=== PATIENT | female | born 1985 | race Caucasian/White ===

== ENCOUNTER 2017-11-11 08:48 | Inpatient (IN) | payer MEDICAID ==
--- NOTE | 2017-11-11 04:39 | PCM.LDHP ---
L&D History of Present Illness - General Date of Service: 11/11/17 Admit Problem/Dx: Patient Status Order with Admit Dx/Problem 11/11/17 09:00 Patient Status [ADT] Routine Admission Diagnosis/Problem Admission Diagnosis/Problem section Source of Information: Patient History Limitations: Reports: No Limitations - History of Present Illness Introduction:: 32 yo female here for an elective repeat C section.She is 39 w1d. Has a h/ o 2 previous scars. has been unremarkable,except asthma exacerbations.She has obesity,stable,and Migraine headaches ,stable. - Related Data Allergies/Adverse Reactions: Allergies Allergy/AdvReac Type Severity Reaction Status Date / Time Penicillins Allergy Cannot Verified 11/10/17 14:53 Remember Past Medical History Respiratory History: Reports: Asthma Neurological History: Reports: Headaches, Chronic - Past Surgical History Other Surgical History Comment: 2 C sections H&P Review of Systems - Review of Systems: Review Of Systems: ROS reveals no pertinent complaints other than HPI. L&D Exam - Exam Exam: See Below - Exam General: Alert, Oriented HEENT: PERRLA, Conjunctiva Clear, EACs Clear, EOMI, Hearing Intact, Mucosa Moist & [place], Nares Patent, Normal Nasal Septum, Posterior Pharynx Clear, TMs Clear Neck: Supple, Trachea Midline Lungs: Clear to Auscultation, Normal Respiratory Effort Cardiovascular: Regular Rate, Regular Rhythm GI/Abdominal Exam: Normal Bowel Sounds, Soft, Non-Tender, No Organomegaly, No Distention, No Abnormal Bruit, No Mass, Pelvis Stable Rectal Exam: Normal Exam, Normal Rectal Tone Genitourinary: Normal external exam, Normal bimanual exam, Normal speculum exam Back Exam: Normal Inspection, Full Range of Motion Extremities: Normal Inspection, Normal Range of Motion, Non-Tender, No Pedal Edema, Normal Capillary Refill Skin: Warm, Dry, Intact Neurological: Cranial Nerves Intact, Reflexes Equal Bilateral Psychiatric: Alert, Normal Affect, Normal Mood - Problem List (1) H/O: SNOMED Code(s): 360947705 ICD Code: Z98.891 - HISTORY OF UTERINE SCAR FROM PREVIOUS SURGERY Status: Acute (2) Term SNOMED Code(s): 28889677 ICD Code: Z34.80 - ENCOUNTER FOR SUPRVSN OF NORMAL , UNSP TRIMESTER Status: Acute (3) Asthma SNOMED Code(s): 159165839 ICD Code: J45.909 - UNSPECIFIED ASTHMA, UNCOMPLICATED Status: Chronic Current Visit: Yes Qualifiers: Asthma severity: moderate Asthma persistence: persistent Asthma complication type: uncomplicated Qualified Code(s): J45.40 - Moderate persistent asthma, uncomplicated (4) Obesity affecting SNOMED Code(s): 622707471437 ICD Code: O99.210 - OBESITY COMPLICATING , UNSPECIFIED TRIMESTER Status: Chronic Current Visit: Yes Qualifiers: Trimester: third trimester Qualified Code(s): O99.213 - Obesity complicating , third trimester (5) H/O migraine during SNOMED Code(s): 257222647 ICD Code: Z86.69 - PERSONAL HISTORY OF DIS OF THE NERVOUS SYS AND SENSE ORGANS; Z87.59 - PERSONAL HISTORY OF COMP OF PREG, CHLDBRTH AND THE PUERP Status: Acute Current Visit: Yes Problem List Initiated/Reviewed/Updated: Yes Orders Last 24hrs: Active Orders 24 hr Category Date Time Status Patient Status [ADT] Routine ADT 11/11/17 09:00 Active Insert Dalal Catheter [Insert Urinary Catheter] [OM.PC] Care 11/11/17 11:30 Ordered Q24H RT Incentive Spirometry [RC] ASDIRECTED Care 11/11/17 09:00 Active Urinary Catheter Assessment [RC] QSHIFT Care 11/10/17 14:42 Active Verify Patient Consent Obtain [RC] ASDIRECTED Care 11/11/17 09:00 Active Nothing Per Oral Diet [DIET] Diet 11/10/17 Dinner Ordered CBC WITH AUTO DIFF [HEME] Routine Lab 11/11/17 09:00 Ordered TYPE AND SCREEN [BBK] Routine Lab 11/11/17 09:00 Ordered Lactated Ringers [Ringers, Lactated] 1,000 ml Med 11/11/17 09:00 Active IV ASDIRECTED Sodium Chloride 0.9% [Saline Flush] Med 11/11/17 09:00 Active 10 ml FLUSH ASDIRECTED PRN ceFAZolin [Ancef] 3 gm Med 11/11/17 09:00 Active Sodium Chloride 0.9% [Normal Saline] 100 ml IV ONETIME Peripheral IV Insertion Adult [OM.PC] Routine Oth 11/11/17 09:00 Ordered Sequential Compression Device [OM.PC] Routine Oth 11/11/17 09:00 Ordered Resuscitation Status Routine Resus Stat 11/10/17 14:37 Ordered Medication Orders Cefazolin Sodium 3 gm/ Sodium (Chloride) 100 mls @ 200 mls/hr IV ONETIME ONE Stop: 11/11/17 09:29 Lactated Ringer's (Ringers, Lactated) 1,000 mls @ 125 mls/hr IV ASDIRECTED KALYN Sodium Chloride (Saline Flush) 10 ml FLUSH ASDIRECTED PRN PRN Reason: Keep Vein Open Assessment/Plan Comment:: Discussed risks and benefits with the patient,including,but not limited to bleeding,infection,anesthetic risk. Wishes to proceed. Plan to have Albuterol available.
[2017-11-11] MEDS ORDERED: Sodium Chloride 0.9% 10 ML Syringe FLUSH PRN (09:00)
[2017-11-11] MEDS: Lactated Ringers 1,000 ML IV SCH ×4 (09:30→21:05)
[2017-11-11] MEDS ORDERED: Citric Acid/Sodium Citrate Solution 30 ML Cup PO ONE (10:16)
[2017-11-11] MEDS ORDERED: Scopolamine 1.5 MG Transdermal Patch TOP ONE (10:16)
[2017-11-11] MEDS ORDERED: HYDROmorphone 2 MG/ML SDV IV ONE (11:30)
[2017-11-11] MEDS ORDERED: Bupivacaine 0.25% 30 ML SDV INJECT ONE (11:30)
[2017-11-11] MEDS ORDERED: Ketorolac 30 MG/ML SDV IVPUSH ONE (11:30)
[2017-11-11] MEDS ORDERED: Ondansetron 4 MG/2 ML SDV IVPUSH ONE (11:30)
[2017-11-11] MEDS ORDERED: Phenylephrine 1% 10 MG/ML SDV IV ONE (11:30)
[2017-11-11] MEDS ORDERED: hydrOXYzine HCl 50 MG/ML SDV IM ONE (11:30)
[2017-11-11] MEDS ORDERED: Lactated Ringers 1,000 ML IV ONE (11:30)
[2017-11-11] MEDS ORDERED: Dexamethasone 4 MG/ML 5 ML MDV ONE (11:30)
[2017-11-11] MEDS ORDERED: fentaNYL 100 MCG/2 ML SDV ITHECAL ONE (11:30)
[2017-11-11] MEDS ORDERED: ePHEDrine 50 MG/ML SDV IV ONE (11:30)
[2017-11-11] MEDS ORDERED: Oxytocin 10 Units/1 ML SDV IV ONE ×2 (11:30)
[2017-11-11] MEDS ORDERED: diphenhydrAMINE 50 MG/ML SDV IVPUSH PRN (12:32)
[2017-11-11] MEDS ORDERED: ePHEDrine 50 MG/ML SDV IVPUSH PRN (12:32)
[2017-11-11] MEDS ORDERED: Naloxone 0.4 MG/ML SDV IVPUSH PRN (12:32)
--- NOTE | 2017-11-11 14:46 | PCM.PRNOTE ---
- Free Text/Narrative Note: Anesthesia Note: Consult for post op pain management: Bilateral Transversus Abdominus Plane Block The patient was under spinal anesthesia at the time of the block. Standard anesthesia monitoring was in place during the block. The patient was prepped and draped in the usual fashion once surgery was complete. A time out for procedure was called. A 20 gauge 4 inch AppPowerGroupuplex ultra echogenic needle was used. Via ultrasound guidance with an inline approach, the external oblique, internal oblique and transversus abdominus plane was visualized. Aspiration was negative, and upon injection of local anesthesia, the faschial sheath was observed spreading apart with deposit of local anesthesia. A total of 30 ml of 0.25% bupivicaine with 5 mg decadron was injected, with noted elipse filling of faschial plane. The same procedure was repeated on the opposite side; and another 30 ml of 0.25 % bupivicaine with 5 mg decadron was injected. The patient tolerated the procedure well. Procedure start time: 1239 Procedure stop time: 1249 The patient was then transferred to post operative care unit: IP room 143. All ultrasound images were saved in PACS system.
--- NOTE | 2017-11-11 18:23 | OR ---
DATE OF OPERATION: 11/11/2017 SURGEON: Johnathan Murillo MD PREOPERATIVE DIAGNOSES: 1. Intrauterine at 39 weeks. 2. History of previous C-sections x2 and the patient desires a repeat C- section. 3. Asthma. 4. Obesity in . POSTOPERATIVE DIAGNOSES: 1. Intrauterine at 39 weeks. 2. History of previous C-sections x2 and the patient desires a repeat C- section. 3. Asthma. 4. Obesity in . PROCEDURE PERFORMED: Repeat section, lower uterine segment. ANESTHESIA: Spinal. ESTIMATED BLOOD LOSS: 600 mL. COMPLICATIONS: None. RIVET CATCHER: Dr. Wilks. FINDINGS: Male in OP position, score of 8 and 9 at 5 and 10 minutes and weight 10 pounds. PROCEDURE IN DETAIL: The patient was taken to the operating room where the spinal anesthesia was administered without difficulty. She was prepped and draped in the usual sterile fashion in the dorsal supine position with a leftward tilt. A Pfannenstiel incision was made with the scalpel along the previous scar and carried through to the underlying layer of fascia using the Bovie. The fascia was incised in the midline and extended laterally with the Anguiano scissors. Paul clamps were used to elevate the superior aspect of the fascial incision and the underlying rectus muscles were dissected bluntly and using Anguiano scissors. The same was repeated in the inferior portion. The rectus muscles were dissected in the midline. The peritoneum was identified and entered using [place]. The incision was extended superiorly and inferiorly with good visualization of the bladder. The bladder blade was inserted. Vesicouterine peritoneum was identified and entered sharply. A bladder flap was created digitally. The bladder blade was reinserted. The lower uterine segment was incised in a transverse fashion using the scalpel and extended by traction in the cephalad caudal fashion manually. Clear fluid was noted. The was subsequently delivered. The mouth was wiped gently and the nose. Cord was cut and clamped. The infant was handed to the awaiting nursery nurse. The placenta was delivered spontaneously, intact with a three-vessel cord. The uterus was exteriorized and cleared of all clots and debris. The incision of the uterus was repaired in 2 layers using 0 chromic sutures. Hemostasis was visualized. Two [id number] stitches were needed to achieve adequate hemostasis. The uterus was returned to the abdomen. The gutters were irrigated and thereafter the rectus sheath was closed in one layer of 1-0 Vicryl. The subcutaneous tissue was closed with a 3-0 running stitch which was returned to close the skin. Sponge, lap, and instrument counts were correct x3. The patient received 3 g of Ancef within 60 minutes of the procedure and was stable at the completion of the procedure and subsequently transferred to the recovery room in stable condition. /[id number] LYDIA/SARAH HEARN
[2017-11-11] MEDS ORDERED: Ibuprofen 600 MG Tab PO PRN (21:15)
[2017-11-11] MEDS: Ibuprofen 600 MG Tab PO SCH (21:45)
[2017-11-12] MEDS: Lactated Ringers 1,000 ML IV SCH ×2 (01:07→05:07)
[2017-11-12] MEDS: Ibuprofen 600 MG Tab PO SCH ×4 (02:55→21:35)
[2017-11-12] MEDS ORDERED: Acetaminophen/HYDROcodone 325-5 MG Tab PO PRN (08:49)
[2017-11-12] MEDS ORDERED: Docusate Sodium 100 MG Cap PO PRN (08:50)
[2017-11-12] MEDS: Enoxaparin 40 MG/0.4 ML Syringe SUBCUT SCH (14:54)
--- NOTE | 2017-11-12 19:16 | PCM.PNPP ---
- General Info Date of Service: 11/12/17 Functional Status: Reports: Pain Controlled, Tolerating Diet - Review of Systems General: Reports: No Symptoms HEENT: Reports: No Symptoms Pulmonary: Reports: No Symptoms Cardiovascular: Reports: No Symptoms Gastrointestinal: Reports: No Symptoms Genitourinary: Reports: No Symptoms Musculoskeletal: Reports: No Symptoms Skin: Reports: No Symptoms Neurological: Reports: No Symptoms Psychiatric: Reports: No Symptoms - General Info Date of Service: 11/12/17 - Patient Data Vital Signs - Most Recent: Last Vital Signs Temp 98.3 F 11/11/17 19:30 Pulse 80 11/11/17 19:30 Resp 18 11/11/17 19:30 BP 117/71 11/11/17 19:30 Pulse Ox 97 11/11/17 19:30 Weight - Most Recent: 122.924 kg I&O - Last 24 Hours: Intake & Output 11/12/17 11/12/17 11/12/17 06:59 14:59 22:59 Intake Total 2333 Output Total 875 Balance 1458 Lab Results - Last 24 Hours: Laboratory Results - last 24 hr 11/12/17 Range/Units 06:35 WBC 13.8 H (4.5-12.0) X10-3/uL RBC 3.75 (3.23-5.20) x10(6)uL Hgb 9.7 L (11.5-15.5) g/dL Hct 29.0 L (30.0-51.3) % MCV 77.4 L (80-96) fL MCH 25.8 L (27.7-33.6) pg MCHC 33.4 (32.2-35.4) g/dL RDW 13.7 (11.5-15.5) % Plt Count 286 (125-369) X10(3)uL Med Orders - Current: Current Medications Hydrocodone Bitart/Acetaminophen ([place] 325-5 Mg) 1 tab PO Q4H PRN PRN Reason: Pain Diphenhydramine HCl (Benadryl) 25 mg IVPUSH Q6H PRN PRN Reason: Itching or Nausea Docusate Sodium (Colace) 100 mg PO BID PRN PRN Reason: Constipation Last Admin: 11/12/17 15:37 Dose: 100 mg Enoxaparin Sodium (Lovenox) 40 mg SUBCUT Q24H COUNTS INCLUDE 234 BEDS AT THE [facility] Last Admin: 11/12/17 14:54 Dose: 40 mg Ephedrine Sulfate (Ephedrine Sulfate) 5 mg IVPUSH ASDIRECTED PRN PRN Reason: Other Ibuprofen (Motrin) 600 mg PO Q6H COUNTS INCLUDE 234 BEDS AT THE [facility] Last Admin: 11/12/17 15:36 Dose: 600 mg Naloxone HCl (Narcan) 0.1 mg IVPUSH ONETIME PRN PRN Reason: Respiratory Depression Discontinued Medications Citric Acid/Sodium Citrate (Bicitra Solution) 30 ml PO ONETIME ONE Stop: 11/11/17 10:17 Last Admin: 11/11/17 10:47 Dose: 30 ml Cefazolin Sodium 3 gm/ Sodium (Chloride) 100 mls @ 200 mls/hr IV ONETIME ONE Stop: 11/11/17 09:29 Lactated Ringer's (Ringers, Lactated) 1,000 mls @ 125 mls/hr IV ASDIRECTED COUNTS INCLUDE 234 BEDS AT THE [facility] Last Admin: 11/11/17 11:20 Dose: 125 mls/hr Lactated Ringer's (Ringers, Lactated) 1,000 mls @ 250 mls/hr IV ASDIRECTED COUNTS INCLUDE 234 BEDS AT THE [facility] Last Admin: 11/12/17 05:07 Dose: 250 mls/hr Scopolamine (Transderm-Scop) 1.5 mg TOP ONETIME ONE Stop: 11/11/17 10:17 Last Admin: 11/11/17 10:47 Dose: 1.5 mg Sodium Chloride (Saline Flush) 10 ml FLUSH ASDIRECTED PRN PRN Reason: Keep Vein Open - Interaction Disposition, : in Room with Family Support Person: Other (see below) - Recovery Exam Fundal Tone: Firm Fundal Level: At Umbilicus Fundal Placement: Midline Lochia Amount: Small Lochia Color: Rubra/Red Perineum Description: Intact, Minimal Bruising/Swelling Episiotomy/Laceration: None Bladder Status: Voiding Urinary Elimination: Indwelling Catheter - Exam General: Alert, Oriented HEENT: Pupils Equal Neck: Supple Lungs: Clear to Auscultation, Normal Respiratory Effort Cardiovascular: Regular Rate, Regular Rhythm GI/Abdominal Exam: Normal Bowel Sounds, Soft, Non-Tender, No Organomegaly, No Distention, No Abnormal Bruit, No Mass, Pelvis Stable Extremities: Normal Inspection, Normal Range of Motion, Non-Tender, No Pedal Edema, Normal Capillary Refill Skin: Warm, Dry, Intact Wound/Incisions: Healing Well Neurological: No New Focal Deficit Psy/Mental Status: Alert, Normal Affect, Normal Mood - Problem List & Annotations (1) H/O: SNOMED Code(s): 941379728 Code(s): Z98.891 - HISTORY OF UTERINE SCAR FROM PREVIOUS SURGERY Status: Acute Current Visit: No (2) Term SNOMED Code(s): 62406925 Code(s): Z34.80 - ENCOUNTER FOR SUPRN OF NORMAL , UNSP TRIMESTER Status: Acute Current Visit: No (3) Asthma SNOMED Code(s): 528877644 Code(s): J45.909 - UNSPECIFIED ASTHMA, UNCOMPLICATED Status: Chronic Current Visit: Yes Qualifiers: Asthma severity: moderate Asthma persistence: persistent Asthma complication type: uncomplicated Qualified Code(s): J45.40 - Moderate persistent asthma, uncomplicated (4) Obesity affecting SNOMED Code(s): 166152874988 Code(s): O99.210 - OBESITY COMPLICATING , UNSPECIFIED TRIMESTER Status: Chronic Current Visit: Yes Qualifiers: Trimester: third trimester Qualified Code(s): O99.213 - Obesity complicating , third trimester (5) H/O migraine during SNOMED Code(s): 149823700 Code(s): Z86.69 - PERSONAL HISTORY OF DIS OF THE NERVOUS SYS AND SENSE ORGANS ; Z87.59 - PERSONAL HISTORY OF COMP OF PREG, CHLDBRTH AND THE PUERP Status: Acute Current Visit: Yes - Problem List Review Problem List Initiated/Reviewed/Updated: Yes - My Orders Last 24 Hours: My Active Orders 11/11/17 21:30 Ibuprofen [Motrin] 600 mg PO Q6H 11/12/17 08:49 Acetaminophen/HYDROcodone [[place] 325-5 MG] 1 tab PO Q4H PRN 11/12/17 08:50 Docusate Sodium [Colace] 100 mg PO BID PRN 11/12/17 14:00 Enoxaparin [Lovenox] 40 mg SUBCUT Q24H 11/12/17 Breakfast Regular Diet [DIET] - Plan Plan:: Advance diet.Pain Control by narcotics. DC IVF. Ambulate.Lovenox for DVT prophylaxis
[2017-11-13] MEDS: Ibuprofen 600 MG Tab PO SCH ×2 (03:46→09:37)
--- NOTE | 2017-11-13 13:05 | PCM.PNPP ---
- General Info Date of Service: 11/13/17 Subjective Update: Doing well. - Review of Systems General: Reports: No Symptoms HEENT: Reports: No Symptoms Pulmonary: Reports: No Symptoms Cardiovascular: Reports: No Symptoms Gastrointestinal: Reports: No Symptoms Genitourinary: Reports: No Symptoms Musculoskeletal: Reports: No Symptoms Skin: Reports: No Symptoms Neurological: Reports: No Symptoms Psychiatric: Reports: No Symptoms - General Info Date of Service: 11/13/17 - Patient Data Vital Signs - Most Recent: Last Vital Signs Temp 97.8 F 11/13/17 00:00 Pulse 81 11/13/17 00:00 Resp 20 11/13/17 00:00 BP 133/76 11/13/17 00:00 Pulse Ox 99 11/13/17 00:00 Weight - Most Recent: 122.924 kg Med Orders - Current: Current Medications Hydrocodone Bitart/Acetaminophen ([place] 325-5 Mg) 1 tab PO Q4H PRN PRN Reason: Pain Diphenhydramine HCl (Benadryl) 25 mg IVPUSH Q6H PRN PRN Reason: Itching or Nausea Docusate Sodium (Colace) 100 mg PO BID PRN PRN Reason: Constipation Last Admin: 11/12/17 15:37 Dose: 100 mg Enoxaparin Sodium (Lovenox) 40 mg SUBCUT Q24H [facility] Last Admin: 11/12/17 14:54 Dose: 40 mg Ephedrine Sulfate (Ephedrine Sulfate) 5 mg IVPUSH ASDIRECTED PRN PRN Reason: Other Ibuprofen (Motrin) 600 mg PO Q6H [facility] Last Admin: 11/13/17 09:37 Dose: 600 mg Naloxone HCl (Narcan) 0.1 mg IVPUSH ONETIME PRN PRN Reason: Respiratory Depression Discontinued Medications Citric Acid/Sodium Citrate (Bicitra Solution) 30 ml PO ONETIME ONE Stop: 11/11/17 10:17 Last Admin: 11/11/17 10:47 Dose: 30 ml Cefazolin Sodium 3 gm/ Sodium (Chloride) 100 mls @ 200 mls/hr IV ONETIME ONE Stop: 11/11/17 09:29 Lactated Ringer's (Ringers, Lactated) 1,000 mls @ 125 mls/hr IV ASDIRECTED [facility] Last Admin: 11/11/17 11:20 Dose: 125 mls/hr Lactated Ringer's (Ringers, Lactated) 1,000 mls @ 250 mls/hr IV ASDIRECTED KALYN Last Admin: 11/12/17 05:07 Dose: 250 mls/hr Scopolamine (Transderm-Scop) 1.5 mg TOP ONETIME ONE Stop: 11/11/17 10:17 Last Admin: 11/11/17 10:47 Dose: 1.5 mg Sodium Chloride (Saline Flush) 10 ml FLUSH ASDIRECTED PRN PRN Reason: Keep Vein Open - Infant Interaction Infant Disposition, : [place] in Room with Family Support Person: Other (see below) - Recovery Exam Fundal Tone: Firm Fundal Level: At Umbilicus Fundal Placement: Midline Lochia Amount: Small Lochia Color: Rubra/Red Perineum Description: Intact, Minimal Bruising/Swelling Episiotomy/Laceration: None Bladder Status: Voiding Urinary Elimination: Indwelling Catheter - Exam General: Alert, Oriented HEENT: Pupils Equal Neck: Supple Lungs: Clear to Auscultation, Normal Respiratory Effort Cardiovascular: Regular Rate, Regular Rhythm GI/Abdominal Exam: Normal Bowel Sounds, Soft, Non-Tender, No Organomegaly, No Distention, No Abnormal Bruit, No Mass, Pelvis Stable Extremities: Normal Inspection, Normal Range of Motion, Non-Tender, No Pedal Edema, Normal Capillary Refill Skin: Warm, Dry, Intact Wound/Incisions: Healing Well Neurological: No New Focal Deficit Psy/Mental Status: Alert, Normal Affect, Normal Mood - Problem List & Annotations (1) H/O: SNOMED Code(s): 729364654 Code(s): Z98.891 - HISTORY OF UTERINE SCAR FROM PREVIOUS SURGERY Status: Acute Current Visit: No (2) Term SNOMED Code(s): 83563977 Code(s): Z34.80 - ENCOUNTER FOR SUPRVSN OF NORMAL , UNSP TRIMESTER Status: Acute Current Visit: No (3) Asthma SNOMED Code(s): 721846854 Code(s): J45.909 - UNSPECIFIED ASTHMA, UNCOMPLICATED Status: Chronic Current Visit: Yes Qualifiers: Asthma severity: moderate Asthma persistence: persistent Asthma complication type: uncomplicated Qualified Code(s): J45.40 - Moderate persistent asthma, uncomplicated (4) Obesity affecting SNOMED Code(s): 902746827970 Code(s): O99.210 - OBESITY COMPLICATING , UNSPECIFIED TRIMESTER Status: Chronic Current Visit: Yes Qualifiers: Trimester: third trimester Qualified Code(s): O99.213 - Obesity complicating , third trimester (5) H/O migraine during SNOMED Code(s): 874473008 Code(s): Z86.69 - PERSONAL HISTORY OF DIS OF THE NERVOUS SYS AND SENSE ORGANS ; Z87.59 - PERSONAL HISTORY OF COMP OF PREG, CHLDBRTH AND THE PUERP Status: Acute Current Visit: Yes - Problem List Review Problem List Initiated/Reviewed/Updated: Yes - My Orders Last 24 Hours: My Active Orders 11/12/17 14:00 Enoxaparin [Lovenox] 40 mg SUBCUT Q24H - Plan Plan:: DC home today
--- NOTE | 2017-11-13 13:46 | PCM.DCSUM1 ---
Discharge Summary - Hospital Course Free Text/Narrative:: 32 yo G3 at term,delivered by planned . No complications.Ready to go home today - Discharge Data Discharge Date: 11/13/17 Discharge Disposition: Home, Self-Care 01 Condition: Good - Discharge Diagnosis/Problem(s) (1) H/O: SNOMED Code(s): 632427995 ICD Code: Z98.891 - HISTORY OF UTERINE SCAR FROM PREVIOUS SURGERY Status: Acute Current Visit: No (2) Term SNOMED Code(s): 68195107 ICD Code: Z34.80 - ENCOUNTER FOR SUPRVSN OF NORMAL , UNSP TRIMESTER Status: Acute Current Visit: No (3) Asthma SNOMED Code(s): 907194745 ICD Code: J45.909 - UNSPECIFIED ASTHMA, UNCOMPLICATED Status: Chronic Current Visit: Yes Qualifiers: Asthma severity: moderate Asthma persistence: persistent Asthma complication type: uncomplicated Qualified Code(s): J45.40 - Moderate persistent asthma, uncomplicated (4) Obesity affecting SNOMED Code(s): 755161489612 ICD Code: O99.210 - OBESITY COMPLICATING , UNSPECIFIED TRIMESTER Status: Chronic Current Visit: Yes Qualifiers: Trimester: third trimester Qualified Code(s): O99.213 - Obesity complicating , third trimester (5) H/O migraine during SNOMED Code(s): 944873487 ICD Code: Z86.69 - PERSONAL HISTORY OF DIS OF THE NERVOUS SYS AND SENSE ORGANS; Z87.59 - PERSONAL HISTORY OF COMP OF PREG, CHLDBRTH AND THE PUERP Status: Acute Current Visit: Yes - Discharge Plan Patient Handouts: Shaken Baby Syndrome, Taking Your Child's Temperature, Circumcision, , Pzny-fs-Tale, Baby Safe Sleeping Information, Circumcision , , Care After, Spue-fn-Vofa, [place] Baby Care, SIDS Prevention Information, Iejc-fq-Elws Referrals: Johnathan Murillo MD [Primary Care Provider] - (6 weeks) - General Info Date of Service: 11/13/17 Admission Dx/Problem (Free Text: Patient Status Order with Admit Dx/Problem 11/11/17 09:00 Patient Status [ADT] Routine Admission Diagnosis/Problem Admission Diagnosis/Problem section Subjective Update: Doing well. Functional Status: Reports: Pain Controlled - Review of Systems General: Reports: No Symptoms HEENT: Reports: No Symptoms Pulmonary: Reports: No Symptoms Cardiovascular: Reports: No Symptoms Gastrointestinal: Reports: No Symptoms Genitourinary: Reports: No Symptoms Musculoskeletal: Reports: No Symptoms Skin: Reports: No Symptoms Neurological: Reports: No Symptoms Psychiatric: Reports: No Symptoms - Patient Data Vitals - Most Recent: Last Vital Signs Temp 97.8 F 11/13/17 00:00 Pulse 81 11/13/17 00:00 Resp 20 11/13/17 00:00 BP 133/76 11/13/17 00:00 Pulse Ox 99 11/13/17 00:00 Weight - Most Recent: 122.924 kg Med Orders - Current: Current Medications Hydrocodone Bitart/Acetaminophen ([place] 325-5 Mg) 1 tab PO Q4H PRN PRN Reason: Pain Diphenhydramine HCl (Benadryl) 25 mg IVPUSH Q6H PRN PRN Reason: Itching or Nausea Docusate Sodium (Colace) 100 mg PO BID PRN PRN Reason: Constipation Last Admin: 11/12/17 15:37 Dose: 100 mg Enoxaparin Sodium (Lovenox) 40 mg SUBCUT Q24H [facility] Last Admin: 11/12/17 14:54 Dose: 40 mg Ephedrine Sulfate (Ephedrine Sulfate) 5 mg IVPUSH ASDIRECTED PRN PRN Reason: Other Ibuprofen (Motrin) 600 mg PO Q6H [facility] Last Admin: 11/13/17 09:37 Dose: 600 mg Naloxone HCl (Narcan) 0.1 mg IVPUSH ONETIME PRN PRN Reason: Respiratory Depression Discontinued Medications Citric Acid/Sodium Citrate (Bicitra Solution) 30 ml PO ONETIME ONE Stop: 11/11/17 10:17 Last Admin: 11/11/17 10:47 Dose: 30 ml Cefazolin Sodium 3 gm/ Sodium (Chloride) 100 mls @ 200 mls/hr IV ONETIME ONE Stop: 11/11/17 09:29 Lactated Ringer's (Ringers, Lactated) 1,000 mls @ 125 mls/hr IV ASDIRECTED [facility] Last Admin: 11/11/17 11:20 Dose: 125 mls/hr Lactated Ringer's (Ringers, Lactated) 1,000 mls @ 250 mls/hr IV ASDIRECTED [facility] Last Admin: 11/12/17 05:07 Dose: 250 mls/hr Scopolamine (Transderm-Scop) 1.5 mg TOP ONETIME ONE Stop: 11/11/17 10:17 Last Admin: 11/11/17 10:47 Dose: 1.5 mg Sodium Chloride (Saline Flush) 10 ml FLUSH ASDIRECTED PRN PRN Reason: Keep Vein Open - Exam General: Reports: Alert, Oriented HEENT: Reports: Pupils Equal, Pupils Reactive, EOMI, Mucous Membr. Moist/[place] Neck: Reports: Supple Lungs: Reports: Clear to Auscultation, Normal Respiratory Effort Cardiovascular: Reports: Regular Rate, Regular Rhythm GI/Abdominal Exam: Normal Bowel Sounds, Soft, Non-Tender, No Organomegaly, No Distention, No Abnormal Bruit, No Mass, Pelvis Stable (Female) Exam: Normal External Exam, Normal Speculum Exam, Normal Bimanual Exam Rectal (Female) Exam: Normal Exam, Normal Rectal Tone Back Exam: Reports: Normal Inspection, Full Range of Motion Extremities: Normal Inspection, Normal Range of Motion, Non-Tender, No Pedal Edema, Normal Capillary Refill Skin: Reports: Warm, Dry, Intact Wound/Incisions: Reports: Healing Well Neurological: Reports: No New Focal Deficit Psy/Mental Status: Reports: Alert, Normal Affect, Normal Mood
[2017-11-13] MEDS: Enoxaparin 40 MG/0.4 ML Syringe SUBCUT SCH (14:30)
== END 2017-11-13 15:03 | disposition home or self-care (01) | DRG 766 ==
LOC: FB.OB 08:48
PROVIDERS: ADMIT Family Medicine; ATTEND Family Medicine
PROC: 10D00Z1 Extraction of Products of Conception, Low, Open Approach (ICD-10-PCS; principal; 2017-11-11)
PROC: 3E0T3BZ Introduction of Anesthetic Agent into Peripheral Nerves and Plexi, Percutaneous Approach (ICD-10-PCS; 2017-11-11)
PROC: 3E0T33Z Introduction of Anti-inflammatory into Peripheral Nerves and Plexi, Percutaneous Approach (ICD-10-PCS; 2017-11-11)
DX: O34.211 Maternal care for low transverse scar from previous cesarean delivery (principal); N85.8 Other specified noninflammatory disorders of uterus; O99.214 Obesity complicating childbirth; O99.52 Diseases of the respiratory system complicating childbirth; Z3A.39 39 weeks gestation of pregnancy; Z37.0 Single live birth; Z86.69 Personal history of other diseases of the nervous system and sense organs; J45.40 Moderate persistent asthma, uncomplicated; G43.909 Migraine, unspecified, not intractable, without status migrainosus; Z88.0 Allergy status to penicillin
CPT/HCPCS: 36415; 85025; 85027; 86850; 86900; 86901; 94150; A9270-GY; J0131; J0690; J1100; J1170; J1650; J1885; J2370; J2405; J2590; J3010; J3410; J3490; J7030; J7120